=== PATIENT | female | born 1940 | race Hispanic/Latino ===

== ENCOUNTER 2018-01-12 14:28 | Outpatient (CLI) | payer MEDICARE | END 2018-01-12 14:29 | disposition home or self-care (01) | LOC: BICRAD 14:28 | PROVIDERS: ATTEND Nurse Practitioner Family | DX: M25.552 Pain in left hip (principal); M25.562 Pain in left knee ==

== ENCOUNTER 2018-04-05 12:51 | Outpatient (CLI) | payer MEDICARE, MEDICAID ==
--- NOTE | 2018-04-05 16:51 | RAD ---
LEFT ANKLE RADIOGRAPHS 3 VIEWS: DATE: 04/05/2018. PROVIDED CLINICAL HISTORY: Left leg pain. FINDINGS: No evidence for a fracture or other acute osseous abnormality. Mild degenerative changes of the tibi otalar joint. Posterior and plantar calcaneal enthesophyte formation are noted. Nonspecific soft ti ssue calcifications are noted. Alignment appears anatomic. Joint spaces appear preserved. IMPRESSION: 1. Mild tibiotalar degenerative arthrosis. 2. Posterior and plantar calcaneal enthesophyte formation. POS: [facility]
--- NOTE | 2018-04-05 16:53 | RAD ---
LEFT KNEE RADIOGRAPHS TWO VIEWS: 04/05/18 PROVIDED CLINICAL HISTORY: Left knee pain. FINDINGS: No evidence for fracture or other acute osseous abnormality. osteophyte formation is seen about the k nee. Alignment appears anatomic. Joint spaces appear preserved. No definite knee joint capsular diste ntion is evident. Vascular calcification is seen. IMPRESSION: Mild degenerative change involving the left knee. POS: [facility]
== END 2018-04-05 12:52 | disposition home or self-care (01) ==
LOC: SCSRAD 12:51
PROVIDERS: ATTEND Internal Medicine Rheumatology
DX: M25.572 Pain in left ankle and joints of left foot (principal); M25.562 Pain in left knee; M17.12 Unilateral primary osteoarthritis, left knee; M19.072 Primary osteoarthritis, left ankle and foot; M77.52 Other enthesopathy of left foot and ankle